=== PATIENT | female | born 1990 | race Caucasian/White ===

== ENCOUNTER 2018-08-15 12:22 | Emergency (ER) | payer OTHER, SELFPAY ==
--- NOTE | 2018-08-15 12:58 | C.PDOC ---
History Of Present Illness 28 year old female presents to ED with complaint of vaginal bleeding that began today. Patient took a home test and was positive. Patient's last menstrual period was on 07/15/18. Patient states she was expecting menses last week, but began bleeding today. She states she has occasional suprapubic tenderness. , P:1, A: 0. Patient denies nausea and vomiting. VAG BLEED TODAY, +UPREG @ HOME. LMP 07/15. PS WAS EXPECTING MENSES LAST WEEK BUT BLEEDING TODAY. +OCC SUPRAPUB TEND. EXAM NAD NO PALLOR ABD NEG Time Seen by Provider: 08/15/18 12:43 Chief Complaint (Nursing): Female Genitourinary History Per: Patient History/Exam Limitations: no limitations Onset/Duration Of Symptoms: Hrs Current Symptoms Are (Timing): Still Present Quality Of Discomfort: "Pain" Associated Symptoms: denies: Nausea, Vomiting Last Menstral Period: 07/15/18 : 2 Para: 1 Miscarriage: 0 Past Medical History Reviewed: Historical Data, Nursing Documentation, Vital Signs Vital Signs: Last Vital Signs Temp 98 F 08/15/18 12:25 Pulse 77 08/15/18 12:25 Resp 20 08/15/18 12:25 BP 121/78 08/15/18 12:25 Pulse Ox 100 08/15/18 12:25 - Medical History PMH: Hypothyroidism Surgical History: No Surg Hx Family History: States: Unknown Family Hx - Social History Hx Alcohol Use: No Hx Substance Use: No - Immunization History Hx Tetanus Toxoid Vaccination: No Hx Influenza Vaccination: No Hx Pneumococcal Vaccination: No Review Of Systems Constitutional: Negative for: Fever, Chills, Weakness Gastrointestinal: Positive for: Abdominal Pain (suprapubic). Negative for: Nausea, Vomiting Genitourinary: Positive for: Vaginal Bleeding. Negative for: Dysuria Neurological: Negative for: Weakness, Numbness, Dizziness Physical Exam - Physical Exam Appears: Well, Non-toxic, No Acute Distress Skin: Normal Color, Warm, Dry, No Pale Head: Atraumatic, Normacephalic Chest: Symmetrical, No Deformity Cardiovascular: Rhythm Regular, No Murmur Respiratory: No Accessory Muscle Use, Other (NARD) Gastrointestinal/Abdominal: Soft, No Tenderness Extremity: Capillary Refill (<2 seconds) Extremity: Bilateral: Atraumatic, Normal Color And Temperature Pulses: Left Radial: Normal, Right Radial: Normal Neurological/Psych: Oriented x3, Normal Speech, Normal Cognition ED Course And Treatment - Laboratory Results Result Diagrams: 08/15/18 13:12 08/15/18 13:12 O2 Sat by Pulse Oximetry: 100 (RA) - CT Scan/US Transvaginal/Pelvic US Other Rad Studies (CT/US): Interpreted By Me, Read By Radiologist CT/US Interpretation: Accession No. : [id number]. Patient Name / ID : NAKITA MONET / [id number]. Exam Date : 08/15/2018 14:20:25 ( Approved ). Study Comment : Sex / Age : F / 28Y. Creator : Lucila Kirkland MD. Dictator : Lucila Kirkland MD. Plasterer Helper : Flower Cutter : Lucila Kirkland MD. Approver2 : Report Date : 08/15/2018 14:44:38. My Comment : * . Date of service: 08/15/2018. HISTORY: VAG BLEED RO ECTOPIC. COMPARISON: None available. TECHNIQUE: Real-time transabdominal pelvic ultrasound was performed. In addition a transvaginal pelvic ultrasound was necessary to better depict pelvic anatomy. FINDINGS: UTERUS: Measures 8.4 x 4.4 x 4.3 cm. Anteverted. ENDOMETRIUM: Measures 1.3 cm in diameter. CERVIX: Cervix length measures approximately 3.1 cm. RIGHT OVARY: Measures 2.3 x 1.4 x 2.3 cm. Blood flow is demonstrated. LEFT OVARY: Measures 2.8 x 1.9 x 3.9 cm. Blood flow is demonstrated. FREE FLUID: No significant free fluid noted. OTHER FINDINGS: None. IMPRESSION: No evidence of intrauterine gestational sac. If indeed the patient is based on serum beta HCG values, the sonographic findings represent either: Very early IUP; embryonic demise; ectopic gestation. Follow- up with serial quantitative serum beta HCG measurements and post OBGYN follow-up as clinically indicated, since ectopic gestation cannot be excluded based only on sonographic findings. Progress Note: Labs ordered with UA for patient.Transvaginal US ordered for patient. Reevaluation Time: 15:03 Reassessment Condition: Improved (ADVISED RETURN 2-3 DAYS FOR REPEAT BETA) Disposition Counseled Patient/Family Regarding: Diagnosis, Need For Followup - Disposition Referrals: [facility] [Outside] [facility] [Provider Group] Disposition: HOME/ ROUTINE Disposition Time: 15:05 Condition: GOOD Additional Instructions: RETURN 2-3 DAYS FOR REPEAT BLOOD TEST. Instructions: Threatened Miscarriage (DC) Forms: [employer] (Senegalese) - Clinical Impression Clinical Impression: Threatened miscarriage - Scribe Statement The provider has reviewed the documentation as recorded by the Scribe (Heather Rodriguez) All medical record entries made by the Scribe were at my direction and personally dictated by me. I have reviewed the chart and agree that the record accurately reflects my personal performance of the history, physical exam, medical decision making, and the department course for this patient. I have also personally directed, reviewed, and agree with the discharge instructions and disposition.
[2018-08-15 13:23] LABS: BASO # 0.1 K/uL (0.0-0.2); BASO % 0.8 % (0.0-2.0); EOS # 0.1 K/uL (0.0-0.7); EOS % 1.2 % (0.0-4.0); HEMOGLOBIN 12.7 g/dL (11.0-16.0); LYMPH # 1.7 K/uL (1.0-4.3); LYMPH % 28.1 % (20.0-40.0); MEAN CELL VOLUME 76.5 fL (81.0-99.0); MEAN CORPUSCULAR HEMOGLOBIN 24.6 pg (27.0-31.0); MEAN CORPUSCULAR HGB CONC 32.1 g/dL (33.0-37.0); MEAN PLATELET VOLUME 9.4 fL (7.2-11.7); MONO # 0.6 K/uL (0.0-0.8); NEUT # 3.7 K/uL (1.8-7.0); NEUT % 59.9 % (50.0-75.0); RBC 5.15 Mil/uL (3.80-5.20); RED CELL DISTRIBUTION WIDTH 14.2 % (11.5-14.5); WHITE BLOOD COUNT 6.2 K/uL (4.8-10.8)
[2018-08-15 13:31] LABS: SQUAMOUS EPITHIAL 1 /hpf (0-5); URINE BACTERIA RARE (<OCC); URINE BILIRUBIN NEGATIVE (NEGATIVE); URINE BLOOD 3+ (NEGATIVE); URINE CLARITY Hazy (Clear); URINE COLOR Yellow (YELLOW); URINE GLUCOSE (UA) NORMAL (Normal); URINE LEUKOCYTE ESTERASE NEG Leu/uL (Negative); URINE PROTEIN NEGATIVE (NEGATIVE); URINE UROBILINOGEN NORMAL mg/dL (0.2-1.0)
[2018-08-15 13:33] LABS: ALB/GLOB RATIO 1.4 (1.0-2.1); ALBUMIN 4.6 g/dL (3.5-5.0); ALT/SGPT 12 U/L (9-52); AST/SGOT 22 U/L (14-36); BLOOD UREA NITROGEN 13 mg/dL (7-17); CALCIUM 9.3 mg/dl (8.6-10.4); GFR NON-AFRICAN AMERICAN > 60
--- NOTE | 2018-08-15 14:48 | US ---
Date of service: 08/15/2018 HISTORY: VAG BLEED RO ECTOPIC COMPARISON: None available. TECHNIQUE: Real-time transabdominal pelvic ultrasound was performed. In addition a transvaginal pelvic ultrasound was necessary to better depict pelvic anatomy. FINDINGS: UTERUS: Measures 8.4 x 4.4 x 4.3 cm. Anteverted. ENDOMETRIUM: Measures 1.3 cm in diameter. CERVIX: Cervix length measures approximately 3.1 cm. RIGHT OVARY: Measures 2.3 x 1.4 x 2.3 cm. Blood flow is demonstrated. LEFT OVARY: Measures 2.8 x 1.9 x 3.9 cm. Blood flow is demonstrated. FREE FLUID: No significant free fluid noted. OTHER FINDINGS: None. IMPRESSION: No evidence of intrauterine gestational sac. If indeed the patient is based on serum beta HCG values, the sonographic findings represent either: Very early IUP; embryonic demise; ectopic gestation. Follow-up with serial quantitative serum beta HCG measurements and post OBGYN follow-up as clinically indicated, since ectopic gestation cannot be excluded based only on sonographic findings.
[2018-08-15 15:19] VITALS: PULSE 74; RESP 18
[2018-08-15 15:25] VITALS: BP 134/78; TEMP 98.6; O2SAT 98
== END 2018-08-15 15:25 | disposition home or self-care (01) ==
LOC: C.ER 12:22
DX: O20.0 Threatened abortion (principal); Z3A.00 Weeks of gestation of pregnancy not specified

== ENCOUNTER 2018-08-18 09:06 | Emergency (ER) | payer OTHER ==
[2018-08-18 09:13] VITALS: BP 103/71; PULSE 81; RESP 18; TEMP 98.3; O2SAT 99
--- NOTE | 2018-08-18 14:34 | C.PDOC ---
History Of Present Illness 28 year old female comes in to ED for repeat beta-HCG quant. Patient was seen here 3 days ago for vaginal bleeding and she states that the bleeding has diminished significantly. Patient denies nausea, vomiting, fever, or chills. Time Seen by Provider: 08/18/18 09:10 Chief Complaint (Nursing): Female Genitourinary History Per: Patient History/Exam Limitations: no limitations Onset/Duration Of Symptoms: Days Current Symptoms Are (Timing): Better Past Medical History Reviewed: Historical Data, Nursing Documentation, Vital Signs Vital Signs: Last Vital Signs Temp 98.3 F 08/18/18 09:08 Pulse 81 08/18/18 09:08 Resp 18 08/18/18 09:08 BP 103/71 08/18/18 09:08 Pulse Ox 99 08/18/18 09:08 - Medical History PMH: Hypothyroidism Family History: States: No Known Family Hx - Social History Hx Alcohol Use: No Hx Substance Use: No - Immunization History Hx Tetanus Toxoid Vaccination: No Hx Influenza Vaccination: No Hx Pneumococcal Vaccination: No Review Of Systems Except As Marked, All Systems Reviewed And Found Negative. Constitutional: Negative for: Fever, Chills Gastrointestinal: Negative for: Nausea, Vomiting Genitourinary: Positive for: Vaginal Bleeding Physical Exam - Physical Exam Appears: Non-toxic, No Acute Distress Skin: Warm, Dry Head: Atraumatic, Normacephalic Eye(s): bilateral: Normal Inspection Oral Mucosa: Moist Neck: Supple Cardiovascular: Rhythm Regular, No Murmur Respiratory: Normal Breath Sounds, No Rales, No Rhonchi, No Wheezing Gastrointestinal/Abdominal: Soft, No Tenderness Extremity: Bilateral: Atraumatic, Normal Color And Temperature, Normal ROM Neurological/Psych: Oriented x3, Normal Speech ED Course And Treatment - Laboratory Results Lab Results: Beta HCG, Quant 4.65 mIU/ML 08/18/18 10:07 O2 Sat by Pulse Oximetry: 99 (RA) Pulse Ox Interpretation: Normal Progress Note: On re-evaluation, beta-hcg quant is now at 4, which decreased from 25 3 days ago. Patient instructed to follow up with OBGYN doctor within 5-7 days. Disposition - Disposition Referrals: [facility], [Non-Staff] - Disposition: HOME/ ROUTINE Disposition Time: 11:00 Condition: GOOD Additional Instructions: CHIKI MACE, thank you for letting us take care of you today. The emergency medical care you received today was directed at your acute symptoms. If you were prescribed any medication, please fill it and take as directed. It may take several days for your symptoms to resolve. Return to the Emergency Department if your symptoms worsen, do not improve, or if you have any other problems. Please contact your doctor or call one of the physicians/clinics you have been referred to that are listed on the Patient Visit Information form that is included in your discharge packet. Bring any paperwork you were given at discharge with you along with any medications you are taking to your follow up visit. Our treatment cannot replace ongoing medical care by a primary care provider outside of the emergency department. Thank you for allowing the [facility] team to be part of your care today. Follow up with your [facility] doctor in 5-7 days for re-evaluation and further management. Forms: [employer] (Zambian) - Clinical Impression Clinical Impression: Vaginal bleeding - Scribe Statement The provider has reviewed the documentation as recorded by the Michelle Euceda Provider Attestation: All medical record entries made by the Michelle were at my direction and personally dictated by me. I have reviewed the chart and agree that the record accurately reflects my personal performance of the history, physical exam, medical decision making, and the department course for this patient. I have also personally directed, reviewed, and agree with the discharge instructions and disposition.
== END 2018-08-18 11:17 | disposition home or self-care (01) ==
LOC: C.ER 09:06
DX: O20.9 Hemorrhage in early pregnancy, unspecified (principal); Z3A.00 Weeks of gestation of pregnancy not specified